=== PATIENT | female | born 1960 | race Caucasian/White ===

== ENCOUNTER 2023-10-16 18:21 | Emergency (ER) | payer OTHER ==
[2023-10-16 20:44] LABS: PT Prothrombin Time 13.1 SECONDS (9.4-12.5); Protime INR 1.2
[2023-10-16 20:47] LABS: Absolute Eosinophils 0.1 K/uL (0-0.5); Absolute Lymphocytes (CBC) 2.8 K/uL (0.7-4.9); Absolute Monocytes 0.5 K/uL (0.1-1.3); Absolute Neutrophil 4.5 K/uL (1.8-8.0); Basophils % 0.6 % (0-1.3); Eosinophils % 0.7 % (0-4.4); Hematocrit 42.5 % (36.0-45.0); Hemoglobin 14.2 g/dL (12.0-15.0); Lymphocytes % 35.9 % (15.3-44.8); MCH 29.9 pg (27.0-35.0); MCHC 33.5 g/dL (32.0-36.0); MCV 89.3 fL (80-100); MPV 8.2 fL (7.6-11.3); Monocytes % 5.7 % (3.3-12.3); Neutrophils % 57.1 % (41.7-73.7); Nucleated Red Blood Cells % 0.1 % (0-0); Platelets 256 thou/uL (152-406); RBC Red Blood Cell Count 4.76 M/uL (3.86-4.86)
[2023-10-16 21:01] LABS: Albumin 4.3 g/dL (3.4-5.0); Albumin/Globulin Ratio 1.2 (1.1-1.8); Anion Gap 6.8 mEq/L (5.0-15.0); Bilirubin Direct 0.2 mg/dL (0-0.2); Bilirubin Indirect, Calculated 0.7 mg/dL (0.2-0.8); Bilirubin Total 0.9 mg/dL (0.2-1.0); Globulin 3.5 g/dL (2.3-3.5); Magnesium 2.3 mg/dL (1.6-2.4); Potassium 3.8 mEq/L (3.5-5.1); Protein, Total 7.8 g/dL (6.4-8.2); Troponin High Sensitivity 5.7 pg/mL (<58.9)
--- NOTE | 2023-10-16 21:34 | RAD REPORT ---
EXAM DESCRIPTION: CT - Angio Aorta For Dissection - 10/16/2023 9:21 pm CLINICAL HISTORY: Chest pain radiating to the back. left flank discomfort COMPARISON: <Comparisons> TECHNIQUE: CT angiography of the aorta was performed with MIPs. All CT scans are performed using dose optimization technique as appropriate and may include automated exposure control or mA/KV adjustment according to patient size. FINDINGS: A left aortic arch is present with normal branching pattern of the great vessels.No acute aortic finding is seen such as aneurysm, penetrating ulcer or dissection. The celiac axis, SMA, EMMIE and renal arteries are patent. No evidence of pulmonary embolism. Noncalcified 9 mm nodule seen in the left lung base. The lungs are otherwise clear. Mild fatty liver.Cholecystectomy clips.The spleen, pancreas, adrenal glands and kidneys are within no rmal limits for arterial phase imaging. No bowel obstruction, free fluid or abscess.Normal appendix.No pathologic enlarged lymphadenopathy id entified. No fracture or worrisome bone lesion seen. IMPRESSION: No acute aortic finding is demonstrated. Noncalcified 9 mm left lung base nodule. Recommend follow-up CT chest in 6 months.
--- NOTE | 2023-10-16 23:25 | EDPHYS ---
Physician Documentation [facility] Name: Tesha Mitchell Age: 62 yrs Sex: Female : 1960 Arrival Date: 10/16/2023 Time: 18:21 Bed 15 Private MD: ED Physician Helder Mullen HPI: 10/15 20:00 This 62 yrs old Female presents to ER via Ambulatory with complaints of Abd Pain > 50 cp y/o. 20:00 The patient presents with sensation of "buzzing" to left side of abdomen. cp 20:00 Onset: The symptoms/episode began/occurred this morning. The symptoms do not radiate. cp Associated signs and symptoms: Pertinent negatives: nausea and vomiting, chest pain, constipation, diarrhea, fever. Severity of pain: in the emergency department the pain is unchanged despite home interventions. Patient reports history of ascending aortic aneurysm and concerned about increasing size of aneurysm. denies pain and reports "buzzing sensation". Historical: - Allergies: 18:37 Anaprox; db 18:37 PROPOFOL; db 18:37 Codeine; db 18:37 Latex, Natural Rubber; db 18:37 EUCALYPTUS CONTAINING PRODUCTS; db 18:37 Albuterol; db - PMHx: 18:37 DILATED AORTA; db - Immunization history:: Adult Immunizations unknown. - Infectious Disease History:: Denies. - Social history:: Smoking status: Patient denies any tobacco usage or history of. ROS: 20:05 Constitutional: Negative for body aches, chills, fever, cp 20:05 Eyes: Negative for injury, pain, redness, and discharge, cp 20:05 ENT: Negative for drainage from ear(s), ear pain, sore throat, difficulty swallowing, difficulty handling secretions, 20:05 Cardiovascular: Negative for chest pain, edema, palpitations, 20:05 Respiratory: Negative for cough, shortness of breath, wheezing, 20:05 Abdomen/GI: Positive for sensation of buzzing left side of abdomen, Negative for vomiting, diarrhea, constipation, anorexia, 20:05 Back: Negative for pain at rest, pain with movement, 20:05 Neuro: Negative for altered mental status, dizziness, headache, syncope, weakness, 20:05 All other systems are negative, Exam: 18:45 ECG was reviewed by the Attending Physician. cp 20:10 Constitutional: The patient appears in no acute distress, alert, awake, cp non-diaphoretic, non-toxic, well developed, well nourished, 20:10 Head/Face: Normocephalic, atraumatic. cp 20:10 Eyes: Periorbital structures: appear normal, Conjunctiva: normal, no exudate, no injection, Sclera: no appreciated abnormality, Lids and lashes: appear normal, bilaterally, 20:10 ENT: External ear(s): are unremarkable, Nose: is normal, Mouth: Lips: moist, Oral mucosa: pink and intact, moist, Posterior pharynx: Airway: no evidence of obstruction, patent, 20:10 Neck: ROM/movement: is normal, is supple, without pain, no range of motions limitations, 20:10 Chest/axilla: Inspection: normal, 20:10 Cardiovascular: Rate: normal, Rhythm: regular, Edema: is not appreciated, JVD: is not appreciated, 20:10 Respiratory: the patient does not display signs of respiratory distress, Respirations: normal, no use of accessory muscles, no retractions, labored breathing, is not present, Breath sounds: are clear throughout, no decreased breath sounds, no stridor, no wheezing, 20:10 Abdomen/GI: Inspection: abdomen appears normal, Bowel sounds: active, all quadrants, Palpation: abdomen is soft and non-tender, in all quadrants, 20:10 Back: CVA tenderness, is absent, 20:10 Skin: cellulitis, is not appreciated, no rash present. 20:10 Neuro: Orientation: to person, place \\T\\ time. Mentation: is normal, Vital Signs: 18:34 BP 148 / 80; Pulse 64; Resp 18; Temp 98.4(O); Pulse Ox 99% ; db 20:15 BP 168 / 88; Pulse 78; Resp 18; Pulse Ox 98% ; nj1 21:32 BP 128 / 73; Pulse 62; Resp 21; Pulse Ox 99% ; nj1 22:16 BP 116 / 73; Pulse 58; Resp 14 S; Pulse Ox 99% on R/A; jw7 23:00 BP 152 / 79; Pulse 65; Resp 14 S; Pulse Ox 100% on R/A; jw7 23:42 BP 125 / 81; Pulse 64; Resp 15 S; Temp 98.5(O); Pulse Ox 100% on R/A; jw7 MDM: 19:53 Patient medically screened. cp 23:25 Data reviewed: vital signs, nurses notes, lab test result(s), radiologic studies, CT cp scan, and as a result, I will discharge patient. 23:25 Differential diagnosis: AAA, non-specific abd pain, Pyelonephritis, Ureterolithiasis, cp urinary tract infection. Counseling: I had a detailed discussion with the patient and/or guardian regarding the historical points, exam findings, and any diagnostic results supporting the discharge/admit diagnosis, lab results, radiology results, to return to the emergency department if symptoms worsen or persist or if there are any questions or concerns that arise at home. 10/15 20:06 Order name: Basic Metabolic Panel; Complete Time: 22:39 cp 10/15 20:06 Order name: CBC with Diff; Complete Time: 22:39 cp 10/15 20:06 Order name: LFT's; Complete Time: 22:39 cp 10/15 20:06 Order name: Magnesium; Complete Time: 22:39 cp 10/15 20:06 Order name: NT PRO-BNP; Complete Time: 22:39 cp 10/15 20:06 Order name: PT-INR; Complete Time: 22:39 cp 10/15 20:06 Order name: Troponin HS; Complete Time: 22:39 cp 10/15 20:06 Order name: Lipase; Complete Time: 22:39 cp 03 20:20 Order name: CT Aorta for Dissection; Complete Time: 22:39 cp / 18:45 Order name: EKG - Nurse/Tech; Complete Time: 18:45 db 10/15 20:06 Order name: Cardiac monitoring; Complete Time: 21:32 cp 10/15 20:06 Order name: IV Saline Lock; Complete Time: 21:07 cp 10/15 20:06 Order name: Labs collected and sent; Complete Time: 21:07 cp 10/15 20:06 Order name: O2 Per Protocol; Complete Time: 21:07 cp 10/15 20:06 Order name: O2 Sat Monitoring; Complete Time: 21:07 cp EC:45 Rate is 60 beats/min. Rhythm is regular. OH interval is normal. QRS interval is normal. cp QT interval is normal. T waves are Inverted in lead aVR. Interpreted by me. Reviewed by me. Administered Medications: No medications were administered Disposition Summary: 10/16/23 23:25 Discharge Ordered Notes: Location: Home cp Problem: new cp Symptoms: are unchanged cp Condition: Stable cp Diagnosis - Other abdominal pain cp Followup: cp - With: Private Physician - When: 2 - 3 days - Reason: Worsening of condition Discharge Instructions: - Discharge Summary Sheet cp - Abdominal Pain, Adult cp Forms: - Medication Reconciliation Form cp - Antibiotic Education cp - Prescription Opioid Use cp - Patient Portal Instructions cp - Leadership Thank You Letter cp Addendum: 10/19/2023 07:45 Co-signature as Attending Physician, Helder Mullen MD I agree with the assessment and c rome plan of care. Signatures: Dispatcher [employer] EDMS Helder Mullen MD MD cha Page, Corey, PA PA Lucrecia Green RN RN db Corrections: (The following items were deleted from the chart) 10/15 20:07 20:07 BASIC METABOLIC PANEL+C.LAB.BRZ ordered. EDMS EDMS 20:07 20:07 CBC+H.LAB.BRZ ordered. EDMS EDMS 20:07 20:07 HEPATIC FUNCTION+C.LAB.BRZ ordered. EDMS EDMS 20:07 20:07 MAGNESIUM+C.LAB.BRZ ordered. EDMS EDMS 20:07 20:07 PROBNP+C.LAB.BRZ ordered. EDMS EDMS 20:07 20:07 PROTIME (+INR)+COAG.LAB.BRZ ordered. EDMS EDMS 20:07 20:07 Troponin High Sensitivity+C.LAB.BRZ ordered. EDMS EDMS 20:07 20:07 LIPASE+C.LAB.BRZ ordered. EDMS EDMS
--- NOTE | 2023-10-16 23:25 | ER ---
Nurse's Notes [facility] Name: Tesha Mitchell Age: 62 yrs Sex: Female : 1960 Arrival Date: 10/16/2023 Time: 18:21 Bed 15 Private MD: Diagnosis: Other abdominal pain Presentation: 10/15 18:34 Chief complaint:. Coronavirus screen: Client denies travel out of the [place] in the last db 14 days. At this time, the client does not indicate any symptoms associated with coronavirus-19. Ebola Screen: Patient negative for fever greater than or equal to 101.5 degrees Fahrenheit, and additional compatible Ebola Virus Disease symptoms Patient denies exposure to infectious person. Patient denies travel to an Ebola-affected area in the 21 days before illness onset. No symptoms or risks identified at this time. Initial Sepsis Screen: Does the patient meet any 2 criteria? No. Patient's initial sepsis screen is negative. Does the patient have a suspected source of infection? No. Patient's initial sepsis screen is negative. Risk Assessment: Do you want to hurt yourself or someone else? Patient reports no desire to harm self or others. 18:34 Method Of Arrival: Ambulatory db 18:34 Acuity: SAGAR 3 db 18:36 Chief complaint: Patient states: STATES HAS "BUZZING IN LEFT ABDOMEN AND LEFT LOWER db CHEST". SENT BY MDM DEVELOPER FOR CTA. STATES IS NOT FROM HERE. HX OF DILATING DESCENDING AORTA. 18:36 Onset of symptoms was October 16, 2023. db Triage Assessment: 18:35 General: Appears in no apparent distress. comfortable, Behavior is calm, cooperative. db Pain: Denies pain. Historical: - Allergies: 18:37 Anaprox; db 18:37 PROPOFOL; db 18:37 Codeine; db 18:37 Latex, Natural Rubber; db 18:37 EUCALYPTUS CONTAINING PRODUCTS; db 18:37 Albuterol; db - PMHx: 18:37 DILATED AORTA; db - Immunization history:: Adult Immunizations unknown. - Infectious Disease History:: Denies. - Social history:: Smoking status: Patient denies any tobacco usage or history of. Screenin:28 [facility] ED Fall Risk Assessment (Adult) History of falling in the last 3 months, nj1 including since admission No falls in past 3 months (0 pts) Confusion or Disorientation No (0 pts) Intoxicated or Sedated No (0 pts) Impaired Gait No (0 pts) Mobility Assist Device Used No (0 pt) Altered Elimination No (0 pt) Score/Fall Risk Level 0 - 2 = Low Risk Oriented to surroundings, Maintained a safe environment, Hourly rounding (assess needs \\T\\ fall precautionary measures) done. Abuse screen: Denies threats or abuse. Denies injuries from another. Nutritional screening: No deficits noted. Tuberculosis screening: No symptoms or risk factors identified. Assessment: 20:15 General: Appears in no apparent distress. comfortable. nj1 20:15 Pain: Denies pain. Neuro: Level of Consciousness is awake, alert, obeys commands, nj1 Oriented to person, place, time, situation. Cardiovascular: Patient's skin is warm and dry. Respiratory: Airway is patent Respiratory effort is even, unlabored. GI: Patient currently denies abdominal pain, diarrhea, nausea, vomiting. 21:33 Reassessment: Patient appears in no apparent distress at this time. Patient and/or nj1 family updated on plan of care and expected duration. Pain level reassessed. Patient is alert, oriented x 3, equal unlabored respirations, skin warm/dry/pink. 22:15 General: Appears in no apparent distress. comfortable, Behavior is calm, cooperative. jw7 Pain: Denies pain. Neuro: Level of Consciousness is awake, alert, obeys commands, Oriented to person, place, time, situation. Cardiovascular: Heart tones S1 S2 present Capillary refill < 3 seconds Clubbing of nail beds is absent JVD is absent Patient's skin is warm and dry. Respiratory: Airway is patent Trachea midline Respiratory effort is even, unlabored, Respiratory pattern is regular, symmetrical. GI: Abdomen is round non-distended, Bowel sounds present X 4 quads. Abd is soft and non tender X 4 quads. : No deficits noted. No signs and/or symptoms were reported regarding the genitourinary system. EENT: No deficits noted. No signs and/or symptoms were reported regarding the EENT system. Derm: Skin is intact, is healthy with good turgor, Skin is dry, Skin is normal, Skin temperature is warm. Musculoskeletal: Circulation, motion, and sensation intact. Range of motion: intact in all extremities. 23:05 Reassessment: Patient appears in no apparent distress at this time. No changes from jw7 previously documented assessment. Patient and/or family updated on plan of care and expected duration. Pain level reassessed. Patient is alert, oriented x 3, equal unlabored respirations, skin warm/dry/pink. 23:41 Reassessment: Patient appears in no apparent distress at this time. No changes from jw7 previously documented assessment. Patient and/or family updated on plan of care and expected duration. Pain level reassessed. Patient is alert, oriented x 3, equal unlabored respirations, skin warm/dry/pink. Vital Signs: 18:34 BP 148 / 80; Pulse 64; Resp 18; Temp 98.4(O); Pulse Ox 99% ; db 20:15 BP 168 / 88; Pulse 78; Resp 18; Pulse Ox 98% ; nj1 21:32 BP 128 / 73; Pulse 62; Resp 21; Pulse Ox 99% ; nj1 22:16 BP 116 / 73; Pulse 58; Resp 14 S; Pulse Ox 99% on R/A; jw7 23:00 BP 152 / 79; Pulse 65; Resp 14 S; Pulse Ox 100% on R/A; jw7 23:42 BP 125 / 81; Pulse 64; Resp 15 S; Temp 98.5(O); Pulse Ox 100% on R/A; jw7 ED Course: 18:26 Patient arrived in ED. ra3 18:35 Triage completed. db 18:35 Arm band placed on left wrist. db 18:45 EKG done, by ED staff. db 19:53 Helder Hudson PA is PHCP. cp 19:53 Helder Mullen MD is Attending Physician. cp 20:15 Sabrina Morris, LULU is Primary Nurse. nj1 20:15 Patient has correct armband on for positive identification. Bed in low position. Call nj1 light in reach. Provided Education on: call light, fall precautions. 20:15 Inserted saline lock: 20 gauge in right antecubital area, using aseptic technique. nj1 Blood collected. Inserted by Bebo LAWSON. 21:23 CT Aorta for Dissection In Process Unspecified. EDMS 22:10 Report given to Lily LAWSON. nj1 23:07 No provider procedures requiring assistance completed. jw7 23:42 IV discontinued, intact, bleeding controlled, No redness/swelling at site. Pressure jw7 dressing applied. Administered Medications: No medications were administered Medication: 23:07 VIS not applicable for this client. jw7 Outcome: 23:25 Discharge ordered by . iwona 23:42 Discharged to home ambulatory, jwCatracho 23:42 Condition: stable 23:42 Discharge instructions given to patient, Instructed on discharge instructions, follow up and referral plans. Demonstrated understanding of instructions, follow-up care, 23:43 Patient left the ED. jw7 Signatures: Dispatcher [employer] EDMS Helder Hudson PA PA cp Waits, Jodi, RN RN jw7 Lucrecia Bernabe RN LULU db Sabrina Morris RN RN nj1 Shea Jacobs ra3 Corrections: (The following items were deleted from the chart) 22:24 21:32 Pulse 62bpm; Resp 21bpm; Pulse Ox 99%; nj1 nj1
[2023-10-17 00:22] VITALS: BP 125/81; TEMP 98.5; O2SAT 100
--- NOTE | 2023-10-18 11:14 | EKG ---
Test Date: 2023-10-16 Test Time: 18:42:55 Spot Welder Line: LEANNE MEASUREMENT RESULTS: Intervals: Rate: 60 IL: 146 QRSD: 88 QT: 410 QTc: 410 Drewsey: P: 37 IL: 146 QRS: -14 T: 4 INTERPRETIVE STATEMENTS: Normal sinus rhythm Normal ECG No previous ECG available for comparison Electronically Signed On 10-18-23 11:12:12 CDT by Juan Diego Arellano
== END 2023-10-16 23:43 | disposition home or self-care (01) ==
LOC: ER 18:21
DX: R10.9 Unspecified abdominal pain (principal)
CPT/HCPCS: 93005; 85025; 80048; 36415; 83735; 85610; 80076; 84484; 83690; 83880; 71275; 74175; 99284; Q9967